=== PATIENT | female | born 1945 | race Caucasian/White ===

== ENCOUNTER → 2016-07-17 | Outpatient (CLI) | payer OTHER ==
[2016-07-17 13:06] LABS: HEMATOCRIT 41.3 % (37-47)
[2016-07-17 14:08] LABS: ALT/SGPT 32 U/L (12-78); AST/SGOT 25 U/L (15-37); BLOOD UREA NITROGEN 20 mg/dl (7-18); BUN/CREATININE RATIO 34.2 (10-20); CALCIUM 8.9 mg/dl (8.5-10.1); CARBON DIOXIDE 31 mmol/L (21-32); CHLORIDE 105 mmol/L (98-107); CHOLESTEROL 198 mg/dl (0-200); CREATININE 0.57 mg/dl (0.60-1.20); GLUCOSE 104 mg/dl (70-99); POTASSIUM 3.8 mmol/L (3.5-5.1); SODIUM 143 mmol/L (136-145)
[2016-07-17 14:20] LABS: CHOLESTEROL/HDL RATIO 4.8; HDL CHOLESTEROL 41 mg/dl; LDL CHOLESTEROL CALCULATED 119 mg/dl; THYROID STIMULATING HORMONE 0.665 uIu/ml (0.300-4.500); TRIGLYCERIDES 190 mg/dl (0-150); VERY LOW DENSITY LIPOPROT CALC 38 mg/dl
== END | disposition home or self-care (01) ==
LOC: C.LABMFLN 11:33
PROVIDERS: ATTEND Family Medicine
DX: I10 Essential (primary) hypertension (principal); E78.00 Pure hypercholesterolemia, unspecified; D50.9 Iron deficiency anemia, unspecified; R20.0 Anesthesia of skin

== ENCOUNTER → 2016-08-05 | Outpatient (CLI) | payer OTHER, MEDICARE ==
--- NOTE | 2016-08-05 15:28 | DIAGNOSTIC IMAGING REPORT ---
MRI OF THE CERVICAL SPINE WITHOUT CONTRAST CLINICAL HISTORY: Neck pain with right-sided radiculopathy. COMPARISON: None. TECHNIQUE: Utilizing a 1.5 Sunni magnet and dedicated coil, multiplanar, multiecho imaging of the cervical spine was performed without IV contrast. FINDINGS: Alignment of the cervical spine is anatomic. Vertebral body heights are maintained. Cervical cord signal and caliber are normal although this exam is mildly compromised by motion artifact. There is no intracanalicular mass or fluid collection. Visualized portions of the posterior fossa are unremarkable. Paravertebral soft tissues are normal. C2-C3: The central canal and neural foramen are patent. C3-C4: The central canal and neural foramen are patent. C4-C5: The central canal is patent. There is mild to moderate narrowing of the right neural foramen due to disc osteophyte complex, uncovertebral hypertrophy and facet arthrosis. C5-C6: There is disc space narrowing with mild disc bulge. There is minimal narrowing of the central canal. There is mild left-sided facet arthrosis. Moderate left and mild right neural foraminal stenosis is present C6-C7: The central canal is patent. There is severe left facet arthrosis at this level. There is mild narrowing of both neural foramen. C7-T1: The central canal and neural foramen are patent. IMPRESSION: 1. Mild multilevel degenerative disc disease with mild multilevel central canal stenosis. Normal cervical cord signal and caliber. 2. Moderate multilevel facet arthrosis, most pronounced at the left C6-C7 neural foramen. Multilevel neural foraminal stenosis, as detailed above. Electronically signed by: Barrett Isidro M.D. 08/05/2016 3:26 PM Dictated Date/Time: 08/05/2016 3:19 PM
== END | disposition home or self-care (01) ==
LOC: C.MRI 14:16
PROVIDERS: ATTEND Family Medicine
DX: M54.12 Radiculopathy, cervical region (principal)

== ENCOUNTER 2022-06-24 06:36 | Observation (INO) ==
--- NOTE | 2022-04-21 15:21 | PAT Medication Instructions ---
Medication Instructions Date of Service April 21, 2022 Home Medications Medication Instructions Recorded coenzyme Q10 100 mg capsule 100 mg PO DAILY #90 caps 11/15/18 triamcinolone acetonide 0.1 % 1 appln topical BID PRN itching 11/15/18 topical cream #30 grams omeprazole 20 mg tablet,delayed 20 mg PO DAILY #90 tabs 03/28/21 release escitalopram oxalate 10 mg tablet 10 mg PO DAILY #90 tabs 08/26/21 diclofenac sodium 1 % topical gel 4 g topical QID PRN pain #200 grams 11/20/21 prednisone 5 mg tablet 10 mg PO DAILY #60 tabs 02/19/22 losartan 100 mg tablet 100 mg PO DAILY #30 tabs 03/26/22 metoprolol succinate 50 mg 50 mg PO DAILY #90 tabs 04/14/22 tablet,extended release 24 hr coenzyme Q10 100 mg capsule 100 mg PO DAILY triamcinolone acetonide 0.1 % topical cream 1 appln topical BID PRN itching loratadine 10 mg tablet (Allergy Relief (loratadine)) 10 mg PO DAILY omeprazole 20 mg tablet,delayed release 20 mg PO DAILY escitalopram oxalate 10 mg tablet 10 mg PO DAILY diclofenac sodium 1 % topical gel 4 g topical QID PRN pain prednisone 5 mg tablet 10 mg PO DAILY prednisone 1 mg tablet 1 mg PO UD 1 dorzolamide 22.3 mg-timolol 6.8 mg/mL eye drops 1 drp ophthalmic (eye) BID latanoprost 0.005 % eye drops 1 drp ophthalmic (eye) QPM folic acid 1 mg tablet 1 mg PO DAILY losartan 100 mg tablet 100 mg PO DAILY metoprolol succinate 50 mg tablet,extended release 24 hr 50 mg PO DAILY acetaminophen 650 mg tablet,extended release 1,300 mg PO BID ascorbate calcium (vitamin C) 500 mg tablet 500 mg PO DAILY benzonatate 200 mg capsule 200 mg PO TID PRN Cough calcium citrate 315 mg calcium-vitamin D3 6.25 mcg (250 unit) tablet 1 tab PO BID doxycycline hyclate 100 mg tablet 100 mg PO BID multivitamin 1 tab PO DAILY Continue as directed prednisone 5 mg tablet 10 mg PO DAILY prednisone 1 mg tablet 1 mg PO UD 1 doxycycline hyclate 100 mg tablet 100 mg PO BID ASK your surgeon for instructions diclofenac sodium 1 % topical gel 4 g topical QID PRN pain STOP taking 2 weeks before surgery coenzyme Q10 100 mg capsule 100 mg PO DAILY STOP taking 24 hours before surgery triamcinolone acetonide 0.1 % topical cream 1 appln topical BID PRN itching DO NOT take the morning of surgery loratadine 10 mg tablet (Allergy Relief (loratadine)) 10 mg PO DAILY folic acid 1 mg tablet 1 mg PO DAILY losartan 100 mg tablet 100 mg PO DAILY ascorbate calcium (vitamin C) 500 mg tablet 500 mg PO DAILY benzonatate 200 mg capsule 200 mg PO TID PRN Cough calcium citrate 315 mg calcium-vitamin D3 6.25 mcg (250 unit) tablet 1 tab PO BID multivitamin 1 tab PO DAILY Take morning of surgery With a small sip of water, OTHERWISE NOTHING TO EAT OR DRINK AFTER MIDNIGHT: omeprazole 20 mg tablet,delayed release 20 mg PO DAILY escitalopram oxalate 10 mg tablet 10 mg PO DAILY dorzolamide 22.3 mg-timolol 6.8 mg/mL eye drops 1 drp ophthalmic (eye) BID metoprolol succinate 50 mg tablet,extended release 24 hr 50 mg PO DAILY acetaminophen 650 mg tablet,extended release 1,300 mg PO BID Take evening before surgery dorzolamide 22.3 mg-timolol 6.8 mg/mL eye drops 1 drp ophthalmic (eye) BID latanoprost 0.005 % eye drops 1 drp ophthalmic (eye) QPM acetaminophen 650 mg tablet,extended release 1,300 mg PO BID benzonatate 200 mg capsule 200 mg PO TID PRN Cough (if needed) calcium citrate 315 mg calcium-vitamin D3 6.25 mcg (250 unit) tablet 1 tab PO BID Other Notes If you have any questions please call us at [phone] or [phone] or [phone] or [phone]
--- NOTE | 2022-06-12 15:16 | Anesthesiology Consultation ---
Date of Service June 12, 2022 Assessment & Plan (1) Encounter for pre-operative examination: Chart Review Chart Review: Acceptable Risk for Surgery (pending cardio office visit (06/17/22)) and Patient seen in Pre Admission Testing - Awaiting cardio office visit scheduled 06/17/22 -Pt is not a Same Day Joint candidate due to age Per PAT appt on 06/11/22, patient denies any recent travel or large group activities. Pt tested Covid positive 02/2022. Pt later became symptomatic again on 04/09/22- treated with Paxlovid and tested Covid positive again. Per Infection Control- additional preop Covid testing/R[facility] DOS test NOT needed prior to surgery. Pt is vaccinated for Covid. Educated on importance of using Covid precautions one week prior to surgery Pt seen by PCP 06/12/22= seen for follow up on several issues. Patient diagnosed with COVID-19 04/09/2022. Continued to have severe coughinglater diagnosed with bronchitis 04/15/2022 = treated with doxycycline. Follow-up on hypertensiontaking losartan and metoprolol as directed. Depressionfeels mood has improved since increasing the citalopram. BP has improved but is not yet at goalshould be on losartan 100 mg daily. Also on metoprolol. May increase amlodipine to 10 mg daily if not taking metoprolol as directed. Blood pressure is adequately controlled to proceed with the knee surgery whenever it is convenient for you and Dr. Paez. Teaching & Discussion Pre-Anesthesia Teaching/Discussion Notes: Instructed NPO after midnight before surgery,except medications with 15 cc of water. Medication instructions provided according to the PAT guidelines. History Surgery Operation Date: 05/07/22 09:20 Proposed Procedures p Left Total Knee Arthroplasty - Vladimir Paez MD Operation Date: 06/24/22 11:10 Proposed Procedures p Left Total Knee Arthroplasty - Vladimir Paez MD Height/Weight Height: 5 ft 1 in Weight: 80.3 kg Allergies Allergy/AdvReac Type Severity Reaction Status Date / Time suture Allergy Intermediate "Caused Verified 06/12/22 14:05 infection" amitriptyline Allergy Mild Itching, Verified 06/12/22 14:05 rash hydroxychloroquine AdvReac Intermediate Diarrhea, Verified 06/12/22 14:05 [From Plaquenil] vomiting meperidine [From Demerol] AdvReac Intermediate Diarrhea, Verified 06/12/22 14:05 vomiting salsalate AdvReac Mild Nausea Verified 06/12/22 14:05 Additional Notes: Surgeon office made aware of absorbable suture allergy Medications Home Medications Medication Instructions Recorded Confirmed Last Taken coenzyme Q10 100 mg capsule 100 mg PO DAILY #90 caps 11/15/18 06/12/22 Unknown triamcinolone acetonide 0.1 % 1 appln topical BID PRN itching 11/15/18 06/12/22 Unknown topical cream #30 grams loratadine 10 mg tablet (Allergy 10 mg PO DAILY 04/14/19 06/12/22 Unknown Relief (loratadine)) omeprazole 20 mg tablet,delayed 20 mg PO DAILY #90 tabs 03/28/21 06/12/22 Unknown release diclofenac sodium 1 % topical gel 4 g topical QID PRN pain #200 grams 11/20/21 06/12/22 Unknown dorzolamide 22.3 mg-timolol 6.8 1 drp ophthalmic (eye) BID 03/14/22 06/12/22 Unknown mg/mL eye drops latanoprost 0.005 % eye drops 1 drp ophthalmic (eye) QPM 03/14/22 06/12/22 Unknown folic acid 1 mg tablet 1 mg PO DAILY 03/24/22 06/12/22 Unknown losartan 100 mg tablet 100 mg PO DAILY #30 tabs 03/26/22 06/12/22 Unknown acetaminophen 650 mg 1,300 mg PO BID 04/21/22 06/12/22 Unknown tablet,extended release ascorbate calcium (vitamin C) 500 500 mg PO DAILY 04/21/22 06/12/22 Unknown mg tablet benzonatate 200 mg capsule 200 mg PO TID PRN Cough 04/21/22 06/12/22 Unknown calcium citrate 315 mg 1 tab PO BID 04/21/22 06/12/22 Unknown calcium-vitamin D3 6.25 mcg (250 unit) tablet multivitamin 1 tab PO DAILY 04/21/22 06/12/22 Unknown escitalopram oxalate 20 mg tablet 20 mg PO DAILY #90 tabs 04/22/22 06/12/22 Unknown metoprolol succinate 50 mg 75 mg PO QAM 04/30/22 06/12/22 Unknown tablet,extended release 24 hr amlodipine 5 mg tablet 5 mg PO DAILY #30 tabs 05/29/22 06/12/22 Unknown prednisone 5 mg tablet 5 mg PO DAILY 05/29/22 06/12/22 Unknown methotrexate sodium 25 mg/mL 25 mg IM QAM 06/10/22 06/12/22 Unknown injection solution Past Medical History Medical History (Updated 06/12/22 @ 16:12 by Marlene Roberts PA-C) Acute bronchitis Seen by PCP 04/22/22- Rx doxy x 7 days + tessalon Perles PRN. Symptoms resolved Benign essential hypertension Chronic GERD Dyslipidemia Glaucoma History of COVID-19 02/18/22 ([facility], [place]), was symptomatic with cough/chills - symptoms resolved Had symptoms several weeks later- tested positive again 04/09/22 ([facility], [place]) (cough, fatigue, headache, chills, loss of appetite)- treated with Paxlovid Hx-TIA (transient ischemic attack) 1997 > no deficits Iron deficiency anemia Mixed conductive and sensorineural hearing loss of left ear with restricted hearing of right ear Bilateral hearing aids Obstructive sleep apnea Snores- no hx of sleep study Occipital neuralgia Intermittent - no current issues Paraesophageal hiatal hernia S/p repair x 2 - currently stable Polymyalgia rheumatica Follows with rheum Prediabetes Rheumatoid arthritis Follows with rheum Sensorineural hearing loss of both ears Sludge in gallbladder Symptoms stable Temporal arteritis Hx- no recent issues Venous insufficiency Mild in ankles- elevate feet at rest - mild improvement Exercise / Class Metabolic Activity III < 4 Walking/Shop/Light housework (no chest pain or SOB with flat surface ambulation ) Past Family History Family History Grandfather (Paternal) Buerger disease Parkinsons disease Father Arthritis Colonic polyp History of Mohs micrographic surgery for skin cancer Prostate cancer Sister Asthma Diabetes type 1 Mother Heart disease Stroke Glaucoma Other No family history of adverse response to anesthesia No family history of bleeding disorder Denies family history of Ovarian cancer Breast cancer Colorectal cancer Past Surgical History Surgical History Family history of reaction to anesthesia Sister- slow to wake H/O arthroscopic knee surgery left knee H/O colonoscopy with polypectomy History of bilateral carpal tunnel release History of dilatation and curettage History of esophagogastroduodenoscopy (EGD) History of tooth extraction Hx of cataract surgery RT/LEFT HX: benign breast biopsy S/P repair of paraesophageal hernia x2 Past Anesthesia History No Hx of Anesthesia Complications and No Family Hx of Anesthesia Complications (with exception to sister - slow to wake - just groggy- no reintubation or ICU stay ) History of PONV No Hx of PONV and No Hx of Motion Sickness Social History Smoking Status: Former smoker tobacco type: cigarettes Do You Dip or Chew Tobacco: No Smoking End Date: 33 YEARS AGO Hx Alcohol Use: Yes Alcohol type: wine alcohol intake frequency: holidays/special occasions only Hx Substance Use: No substance use type: does not use Review of Systems Fluttering sensation occ- see cardio prior to surgery (06/17/22) Patient denies chest pain, shortness of breath, dyspnea on exertion, cough, wheezing, palpitations. No hx of seizures, [place]. No hx of blood clots or blood transfusions Physical Exam Vital Signs VITALS BP 141/79 P 59 TEMP 98.1 SP02 96% RESP 16 Constitutional no acute distress ENMT Mouth: no TMJ clicking Thyromental Distance: > or= 3.5 Finger Breadths (3.5) Mallampati Class: I Missing molars Crowns to side teeth and molars Neck + limited neck extension (minimal) Respiratory normal respiratory effort; no respiratory distress Auscultation: lungs clear to auscultation bilaterally; no wheezes Cardiovascular Rate/Rhythm: regular rate and regular rhythm Heart Sounds: no murmur Vessels: no carotid bruit Musculoskeletal Spine: no pain with cervical ROM Extremities: extremities normal to inspection Psychiatric Orientation: alert Lab Results Anesthesia Preop Results Results Anesthesia Widget: WBC 10.00 K/ul (4.8-10.8) 06/12/22 Hgb 12.9 g/dl (12.0-16.0) 06/12/22 Hct 40.3 % (37.0-47.0) 06/12/22 Plt 217 K/uL (130-400) 06/12/22 Na 140 mmol/L (136-145) 06/12/22 K 3.9 mmol/L (3.5-5.1) 06/12/22 Cl 103 mmol/L (98-107) 06/12/22 CO2 31 mmol/L (21-32) 06/12/22 BUN 32 mg/dl (6-23) H 06/12/22 Creat 0.71 mg/dl (0.6-1.2) 06/12/22 Glucose Level 133 mg/dl (70-99(Fasting)) H 06/12/22 PT 11.1 Seconds (9.0-12.0) 06/12/22 PTT 23.8 Seconds (21.0-31.0) 06/12/22 INR 1.0 (0.9-1.1) 06/12/22 HA1c 6.0 % (4.5-5.6) H 06/12/22 Blood Type O Positive 06/12/22 Antibody Screen NEGATIVE 06/12/22 Testing Electrocardiogram Date: 06/12/22 Findings: + SB @ (58bpm ) Otherwise normal EKG Chest X-Ray Date: 04/15/22 Findings: + NAD Cervical Spine Date: 06/12/22 FINDINGS: Slight anterolisthesis of C6 on C7 is noted. This does not change during flexion or extension. There is no evidence for C1-C2 instability. Moderate disc space narrowing at C5-C6 is present. There is moderate multilevel facet arthrosis. No acute cervical spine fractures. IMPRESSION: No evidence for cervical spine instability during flexion or extension. Other Testing Holter monitor 03/17/2020 = sinus rhythm. Average HR 71 bpm. 1 episode of VT (5 beats), nonsustained. PVCs, PACs. No reported symptoms. COVID-19 Risk Screen Screening Information COVID-19 Screen Date: 06/12/22 Exposure 21 Days Family/Household +COVID Last 21 Days: No Exposure 10 Days Any COVID Exposure Last 10 Days: No Symptoms Last 10 Days Experienced COVID Sx Last 10 Days: No + COVID 0-90 Days COVID + in Last 0-90 Days: Yes + COVID Test 0-10 Day: No + COVID Test 11-90 Day: Yes Date/Place of COVID-19 Test: 04/09/22 What were Your COVID-19 Symptoms: Cough Currently Having Symptoms Related to COVID: No COVID Testing Site COVID-19 Preop/Pre-Procedure Testing Site: [facility] Risk Plan COVID Risk Plan: Last 11-90D + CoV Test Patient Education COVID Preop Screening Education Complete: Yes
[~2022-06-24 06:36] MED LIST: ACETAMINOPHEN 500 MG TAB PO SCH; BUPIVACAINE LIPOSOME/PF 266 MG, BUPIVACAINE/EPINEPHRINE 50 ML, SODIUM CHLORIDE 0.9% 30 ... INFIL SCH; CeleBREX 200 MG CAP PO SCH; FAMOTIDINE 20 MG TAB PO SCH; LR 500ML BOLUS, THEN 15ML/HR IV SCH; LR 60ML/HR IV SCH; METOCLOPRAMIDE HCL 10 MG TABLET PO SCH; ROPIVACAINE 0.5% 5 MG/ML 30 ML VIAL ONE; TRANEXAMIC ACID 1,000 MG **IV Intra-op IV SCH; ceFAZolin 2000MG 2,000 MG/15 ML SYR IV SCH
--- NOTE | 2022-06-24 06:59 | History & Physical Bridge Note ---
Date of Service June 24, 2022 History & Physical Bridge Note I have examined the patient, reviewed the History & Physical and in the interval since the performance of the History & Physical I have noted the following changes of clinical significance: no changes noted
[2022-06-24] MEDS ORDERED: fentaNYL citrate 100 MCG/2 ML VIAL ONE (07:18)
[2022-06-24] MEDS ORDERED: PROPOFOL IV EMULSION 10 MG/ML 20 ML VIAL IV ONE (07:18)
[2022-06-24] MEDS ORDERED: MIDAZOLAM HCL 1 MG/ML 2ML VIAL ONE (07:18)
[2022-06-24] MEDS ORDERED: ePHEDrine sulfate 50 MG/ML AMP IV PRN (08:05)
[2022-06-24] MEDS ORDERED: KETOROLAC 30 MG/ML VIAL IV PRN (08:05)
[2022-06-24] MEDS ORDERED: HYDROmorphone INJ 1 MG/ML SYRINGE IV PRN (08:05)
[2022-06-24] MEDS ORDERED: ONDANSETRON INJ 2 MG/ML 2 ML VIAL IV PRN ×2 (08:05→11:44)
[2022-06-24] MEDS ORDERED: ATROPINE SULFATE 0.1 MG/ML 10ML SYR IV PRN (08:05)
[2022-06-24] MEDS ORDERED: SODIUM CHLORIDE 0.9% PF 50 ML VIAL ONE (08:46)
[2022-06-24] MEDS ORDERED: BUPIVACAINE/EPINEPHRINE 0.25% 1:200,000 30 ML VIAL ONE (08:46)
[2022-06-24] MEDS ORDERED: BUPIVACAINE LIPOSOME 1.3% 266 MG/20 ML VIAL ONE (08:46)
[2022-06-24] MEDS ORDERED: DEXAMETHASONE SOD INJ 4 MG/ML VIAL ONE (09:04)
--- NOTE | 2022-06-24 10:56 | Operative Report ---
PG Post Operative Report Pre & Post Diagnosis Operation Date: 05/07/22 09:20 <No data on this case meets the specified criteria> Operation Date: 06/24/22 08:50 Pre-Op Diagnosis: Left Knee Advanced Degenerative Joint Disease Post-Op Diagnosis: Left Knee Advanced Degenerative Joint Disease I identified the patient and participated in the time-out.: Yes Procedure Operation Date: 05/07/22 09:20 <No data on this case meets the specified criteria> Operation Date: 06/24/22 08:50 Actual Procedures p Left Total Knee Arthroplasty(Left) - Vladimir Paez MD Surgeon Vladimir Paez MD Shoveler Gui Verde PA-C Estimated Blood Loss 50 Findings Consistent with Post-Op Diagnosis Operative findings revealed advanced left knee DJD with extensive grade 4 [id number] disease the entire lateral compartment. She had a valgus deformity to her knee with a moderate-sized knee joint effusion. Fluids 1200 cc Specimens Left knee sent for pathology Drains None Anesthesia Type Spinal MAC Complications none Disposition Accompanied Patient To Recovery: No Indications Patient is 76-year-old female said a several year history of increasing left knee pain discomfort unresponsive conservative care. X-rays show advanced lateral compartment arthritis. She failed conservative measures and elected proceed with left total knee replacement. Description of Procedure Operative implants consist of: 1. Biomet Vanguard size 57.5 left posterior stabilized femoral component. 2. Biomet size 71 tibial tray. 3. 10 mm posterior stabilized polyethylene insert. 4. 28 x 8 all poly patella. The patient was taken to the operating room, identified, and placed on the operating table supine position but all contact areas were appropriately padded. IV antibiotics tried by anesthesia team. We also gave her 10 mg of Decadron and for stress dose steroid reasons. A spinal anesthetic and been implemented holding area. [place] catheter was placed in sterile fashion. A left thigh turn was then placed in the left lower extremity was then prepped and draped in usual sterile fashion. The left leg was elevated and exsanguinated with use of an Esmarch and the tourniquet was placed at 300 mmHg. An anterior approach the left knee was then performed through a longitudinal incision centered over the patella. Sharp dissection was carried through subcutaneous tissue down to the extensor mechanism. Medial parapatellar arthrotomy incision was made. Some subperiosteal dissection was carried out medially. The fat pad was dissected from Neath patella tendon. Lateral patellofemoral ligament was released. Patella was subluxated laterally and the knee was flexed. The osteophytes were taken off distal femur. The ACL and PCL were then released from distal femur and the tibia subluxated anteriorly. The external tibial alignment jig was then placed in the interface the tibia and adjusted 14 mm medially. Proximal tibial cut was made remove about 3 to 4 mm of bone from the medial side. The tibia was then sized to a size 67. Attention drawn the femur. The distal femur stem with a sharp drill. Intramedullary canal was suction. A left 5 degree valgus cutting guide was placed. Distal femoral cutting block was pinned in place. Distal femoral cut was made to take an additional 3 mm of bone off distal femur. The femur was then sized to a size 57.5. The AP cutting block was pinned parallel to the epicondylar axis which was 8 degrees of external rotation. Anterior cut, anterior chamfer, posterior cut, posterior chamfer cuts were made. The box cutting guide was placed in a just slightly lateral and the box cut was made. The knee was brought out in extension I did do a little pie crusting the IT band in order to equalize extension gap. I did have to release the popliteus in order to equalize the flexion gap. A trial femoral component was placed. The tibial tray was then pinned in maximum external rotation and the drill and stem punch were used to create defect in proximal tibia for the tibial tray. Knee was then trialed and 10 mm insert fit most appropriately. Attention drawn the patella. Patella was cleaned of all soft tissues. Patella thickness measured 20 mm in thickness. Was cut down to 13. Was sized to a size 28 patella. The lug holes were drilled for the 28 patella. The lateral osteophyte was removed. Patella button was placed. Knee was taken through range of motion and the patella tracked nicely with no thumbs test. Attention drawn to placing permanent components. Nupathe all trial components were removed. Bone plug was placed in the distal femur limit blood loss. Double batch Palacos G cement was mixed. [employer] size 57.5 left posterior stabilized femoral component, a size 67 tibial tray, a 10 mm posterior stabilized polyethylene insert, and a 28 x 8 all Paller patella then cemented in place. New spreadout into full extension until cement hardened. Final cement check was then performed. The pericapsular tissues were injected with total of 100 cc of combination of 20 cc of Exparel, 30 cc normal saline, 50 cc of quarter percent Marcaine with epinephrine. Patient did receive 1 g tranexamic acid. The tourniquet was then let down for final tourniquet time of 53 minutes. Hemostasis reduced electrocautery. Extensor mechanism closed with combination 1 PDS suture #1 Vicryl suture in a [id number] fashion. Extensor mechanism checked found to be intact with subcutaneous tissues then closed with 2 Dexon suture in a buried interrupted fashion skin was closed skin lucille. Leg was then cleaned and dried and sterile dressed with Xeroform, 4 fours, sterile cast padding, Enrike bandage were applied. Patient then transferred to the recovery room in stable condition. Patient tolerated procedure well no complications. Gui Verde, my physician certified anesthesiologist assistant, was present for the entire procedure. His assistance was essential and required for appropriate patient positioning, prepping and draping, surgical exposure, performing the technical details of the operation, placement the implants, closure of the wound, and placement of the sterile bandage. I attest to the content of the Intraoperative Record and any orders documented therein. Any exceptions are noted below.
--- NOTE | 2022-06-24 11:06 | XRay Report ---
XR knee LT 1 or 2V routine HISTORY: 76 years-old Female Surgical Post Op [replacement COMPARISON: 11/17/2013 TECHNIQUE: 2 views of the left knee FINDINGS: Total joint arthroplasty with patellar resurfacing. Anterior midline skin lucille are present along w ith expected postoperative soft tissue swelling with deep tissue air. No acute fracture, dislocation or unexpected opaque foreign body. IMPRESSION: Total joint arthroplasty with expected postoperative changes. ACT 112: Negative or not required by law. The above report was generated using voice recognition software. It may contain grammatical, syntax o r spelling errors. Electronically signed by: Baltazar Worrell M.D. 06/24/2022 11:04 AM
--- NOTE | 2022-06-24 11:31 | Anesthesiology Progress Note ---
Date of Service June 24, 2022 Anesthesia Post Procedure Vital Signs Vital Signs: Temp Pulse Pulse Resp BP Pulse Ox O2 Del Method 06/24/22 11:00 58 L 14 159/70 H 100 Oxymask 06/24/22 11:21 36.8 C 64 15 153/75 H 94 Room Air 06/24/22 10:50 59 L 18 156/68 H 100 Oxymask 06/24/22 10:41 37.1 C 64 14 139/62 94 Oxymask 06/24/22 07:05 36.7 C 72 18 165/89 H 96 Room Air O2 Flow Rate 06/24/22 11:00 2 06/24/22 11:21 06/24/22 10:50 3 06/24/22 10:41 5 06/24/22 07:05 Pain Intensity Left Knee: Pain Intensity: 0 Transfer of Care Handoff Completed per policy Notes Mental Status: alert / awake / arousable Patient Amnestic to Procedure: Yes Nausea / Vomiting: adequately controlled Pain: adequately controlled Airway Patency, RR, SpO2: stable & adequate BP & HR: stable & adequate Hydration State: stable & adequate Neuraxial Anesthesia: was administered and sensory block is resolving Anesthetic Complications: no major complications apparent
[2022-06-24] MEDS ORDERED: MAGNESIUM HYDROXIDE SUSP 30 ML UDC PO PRN (11:44)
[2022-06-24] MEDS ORDERED: HYDROmorphone INJ 0.5 MG/0.5 ML SYR IV PRN (11:44)
[2022-06-24] MEDS ORDERED: METOCLOPRAMIDE HCL INJ 5 MG/ML 2 ML VIAL IV PRN (11:44)
[2022-06-24] MEDS ORDERED: oxyCODONE HCL IR 5 MG TAB (IMMEDIATE RELEASE) PO PRN (11:44)
[2022-06-24] MEDS ORDERED: ALUMINUM/MAGNESIUM SUSP 30 ML UDC PO PRN (11:44)
[2022-06-24] MEDS ORDERED: bisacodyL 10 MG SUPP PR PRN (11:44)
[2022-06-24] MEDS ORDERED: NALOXONE HCL 0.4 MG/1 ML VIAL/CARP IV PRN (11:44)
[2022-06-24] MEDS ORDERED: TRIAMCINOLONE ACET 0.1% CR 15 GM TUBE TOP PRN (11:44)
[2022-06-24] MEDS: SODIUM CHLORIDE 0.9% 1000ML 1,000 ML IV SCH ×2 (12:19→21:32)
[2022-06-24] MEDS: KETOROLAC TROMETHAMINE 15 MG/ML VIAL IV SCH ×2 (12:40→17:20)
[2022-06-24] MEDS: ACETAMINOPHEN 500 MG TAB PO SCH ×2 (13:56→21:30)
[2022-06-24] MEDS ORDERED: TRANEXAMIC ACID / 0.7% NACL 1,000 MG/100 ML BAG IV SCH (17:00)
[2022-06-24] MEDS: ASCORBIC ACID 500 MG TAB PO SCH (17:19)
[2022-06-24] MEDS: ceFAZolin 2000MG 2,000 MG/15 ML SYR IV SCH (17:20)
[2022-06-24] MEDS ORDERED: MELATONIN 3 MG TAB PO SCH (21:00)
[2022-06-24] MEDS ORDERED: ESCITALOPRAM OXALATE 20 MG TAB PO SCH (21:00)
[2022-06-24] MEDS ORDERED: LATANOPROST 0.005% OP SOLN 2.5 ML BTL OP SCH (21:00)
[2022-06-24] MEDS ORDERED: SENNA 8.6 MG TAB PO SCH (21:00)
[2022-06-24] MEDS: CALCIUM 600MG + VIT D 400 IU TAB PO SCH (21:29)
[2022-06-24] MEDS: DOCUSATE SODIUM 100 MG CAP PO SCH (21:30)
[2022-06-24] MEDS: DORZOLAMIDE/TIMOLOL 22.3/6.8MG/ML 10 ML BTL OP SCH (21:31)
[2022-06-25] MEDS: KETOROLAC TROMETHAMINE 15 MG/ML VIAL IV SCH ×2 (00:09→05:41)
[2022-06-25] MEDS: ceFAZolin 2000MG 2,000 MG/15 ML SYR IV SCH (00:09)
[2022-06-25] MEDS: ACETAMINOPHEN 500 MG TAB PO SCH (05:41)
[2022-06-25 06:14] LABS: Hematocrit (blood only) 30.2 % (37.0-47.0); Hemoglobin 9.8 g/dl (12.0-16.0); Mean Corpuscular Hemoglobin 28.4 pg (25.0-34.0); Mean Corpuscular Hgb Conc 32.5 g/dL (32.0-36.0); Mean Corpuscular Volume 87.5 fL (80.0-100.0); Mean Platelet Volume 10.3 fL (9.4-12.4); Platelet Count 175 K/uL (130-400); RDW Coefficient of Variation 13.4 % (11.5-14.5); RDW Standard Deviation 42.7 fL (36.4-46.3); Red Blood Count 3.45 M/uL (4.20-5.40); White Blood Count 10.99 K/ul (4.8-10.8)
[2022-06-25] MEDS ORDERED: dexAMETHasone 10 MG in SYRINGE 0 ML IV SCH (08:00)
[2022-06-25] MEDS: ASCORBIC ACID 500 MG TAB PO SCH (08:05)
[2022-06-25] MEDS: CALCIUM 600MG + VIT D 400 IU TAB PO SCH (08:09)
[2022-06-25] MEDS: DOCUSATE SODIUM 100 MG CAP PO SCH (08:09)
[2022-06-25] MEDS: DORZOLAMIDE/TIMOLOL 22.3/6.8MG/ML 10 ML BTL OP SCH (08:10)
[2022-06-25 08:13] LABS: BUN Creatinine Ratio 47.2 (10-20); Calcium 8.2 mg/dl (8.5-10.1); Creatinine Clr Calc Pharmacy 85.9 ml/min; Est GFR (African American) 105.4 ml/min; Est GFR (Non-African American) 90.9 ml/min; Potassium 3.6 mmol/L (3.5-5.1)
[2022-06-25] MEDS ORDERED: NON-FORMULARY MEDICATION (Coenzyme Q10 100 mg capsule) PO SCH (09:00)
[2022-06-25] MEDS ORDERED: FOLIC ACID 1 MG TAB PO SCH (09:00)
[2022-06-25] MEDS ORDERED: LORATADINE 10 MG TAB PO SCH (09:00)
[2022-06-25] MEDS ORDERED: PANTOprazole 40 MG TAB PO SCH (09:00)
[2022-06-25] MEDS ORDERED: LOSARTAN POTASSIUM 50 MG TAB PO SCH (09:00)
[2022-06-25] MEDS ORDERED: predniSONE 5 MG TAB PO SCH (09:00)
[2022-06-25] MEDS ORDERED: amLODIPine BESYLATE 5 MG TAB PO SCH (09:00)
[2022-06-25] MEDS ORDERED: METOPROLOL SUCC 25MG EXT REL TAB PO SCH (09:00)
[2022-06-25] MEDS ORDERED: MULTIVITAMIN TAB PO SCH (09:00)
[2022-06-25] MEDS ORDERED: NON-FORMULARY MEDICATION (Multivitamin tablet) PO SCH (09:00)
[2022-06-25] MEDS ORDERED: ASCORBATE CALCIUM 500 MG PO SCH (09:00)
[2022-06-25] MEDS ORDERED: DOCUSATE SODIUM/SENNA 50/8.6MG TAB PO SCH (09:00)
[2022-06-25] MEDS ORDERED: RIVAROXABAN 10 MG TABLET PO SCH (11:00)
--- NOTE | 2022-06-25 11:00 | Progress Notes ---
DATE OF SERVICE: 06/25/2022. SUBJECTIVE: A 76-year-old female postoperative day 1 from a left knee replacement. She is doing rem arkably well. Denies any real pain. No chest pain or shortness of breath. Not feeling dizzy or lig htheaded. She is hoping to go home. OBJECTIVE: VITAL SIGNS: Temperature is 36.9. Vital signs are stable. GENERAL: Shows a pleasant, elderly female. She is sitting up in her bedside chair and looks quite c omfortable. LUNGS: Clear to auscultation. HEART: Has a regular rate and rhythm. ABDOMEN: Soft, nontender, nondistended. EXTREMITIES: Grossly neurovascularly intact except as follows. Examination of the left leg reveals the dressing to be clean, dry and intact. She can dorsiflex and plantarflex her foot appropriately. She can do a good straight leg raise. She is neurologically int act. LABORATORY DATA: Hemoglobin 9.8. Hematocrit 30.2. Electrolytes are stable. ASSESSMENT: A 76-year-old white female postoperative day 1 from left knee replacement, doing remarka leti well. Really not having much pain. Knee is functioning well. PLAN: 1. DVT prophylaxis includes thigh-high TEDs, SCDs, and she is going to start Xarelto 24 hours postop at a prophylactic dose. 2. PT/OT. She can fully weightbear as tolerated in his left leg. 3. Pain control, doing okay with current pain regimen. 4. Disposition: Plan is to discharge her to home with some home health likely later today if she do es okay in therapy. Job ID: [id number]
== END 2022-06-25 14:07 | disposition home health service (06) ==
LOC: 3E 06:36 → ASU 06:36